=== PATIENT | female | born 1995 | race Two or more races ===

== ENCOUNTER → 2023-03-16 | Outpatient (REF) | payer OTHER, MEDICAID ==
[2023-03-16 19:19] LABS: CHLAMYDIA DNA AMPLIFICATION NEGATIVE (NEGATIVE); GC DNA AMPLIFICATION NEGATIVE (NEGATIVE)
== END ==
LOC: M LAB REF 16:52
PROVIDERS: ATTEND Registered Nurse
DX: N76.0 Acute vaginitis (principal); Z11.3 Encounter for screening for infections with a predominantly sexual mode of transmission; Z12.4 Encounter for screening for malignant neoplasm of cervix